=== PATIENT | male | born 1980 | race American Indian/Alaskan Native ===

== ENCOUNTER 2021-05-06 23:38 | Emergency (ER) | payer SELFPAY ==
[2021-05-06 23:46] VITALS: BP 161/101
--- NOTE | 2021-05-06 23:49 | Emergency Department Report ---
ED Upper Extremity Inj HPI - General Chief Complaint: Extremity Injury, Upper Stated Complaint: BROKEN ARM Time Seen by Provider: 05/06/21 23:47 Source: patient Mode of arrival: Ambulatory Limitations: No Limitations - History of Present Illness Initial Comments: Patient presents with right arm pain. He has a right hand dominant gentleman who slipped and fell on a wet floor last night. He states that his arm was underneath him and he tried to catch himself. He has been having pain in the right forearm. This radiates into the elbow. There is pain with any kind of motion of the right elbow. He states that his wrist and hand really do not hurt. His shoulder does not hurt. Again, he is right-hand dominant. Pain is a constant and aching pain. He has no other trauma. Is never injured his arm before. - Related Data Previous Rx's Medication Instructions Recorded Last Taken Type HYDROcodone/APAP 5-325 [[place] 1 each PO Q6HR PRN #15 tablet 05/07/21 Unknown Rx 5/325] Allergies Allergy/AdvReac Type Severity Reaction Status Date / Time No Known Allergies Allergy Unverified 05/06/21 23:45 ED Review of Systems ROS: Stated complaint: BROKEN ARM Other details as noted in HPI Comment: All other systems reviewed and negative Constitutional: denies: fever Eyes: denies: vision change ENT: denies: throat pain Respiratory: denies: cough Cardiovascular: denies: chest pain Endocrine: denies: unexplained weight loss Gastrointestinal: denies: abdominal pain Genitourinary: denies: hematuria Musculoskeletal: denies: back pain Skin: denies: rash Hematological/Lymphatic: denies: easy bruising ED Past Medical Hx - Past Medical History Previous Medical History?: No - Surgical History Past Surgical History?: No - Family History Family history: no significant - Medications Home Medications: Home Medications Medication Instructions Recorded Confirmed Last Taken Type HYDROcodone/APAP 5-325 [[place] 1 each PO Q6HR PRN #15 tablet 05/07/21 Unknown Rx 5/325] ED Physical Exam - General Limitations: No Limitations, Other (Pulse ox noted and normal) General appearance: alert, in no apparent distress - Head Head exam: Present: atraumatic, normocephalic, normal inspection - Eye Eye exam: Present: normal appearance, EOMI. Absent: scleral icterus - ENT ENT exam: Present: normal external ear exam - Neck Neck exam: Present: normal inspection. Absent: meningismus - Respiratory Respiratory exam: Absent: respiratory distress - Cardiovascular Cardiovascular Exam: Present: other (Normal pulses) - Extremities Exam Extremities exam: Present: normal capillary refill, other (There is tenderness with palpation over the right forearm and right elbow. There is limited range of motion with pronation and supination as well as flexion and extension at the elbow. Right wrist is nontender. There is no tenderness in the snuffbox. Distal sensation is intact.) - Back Exam Back exam: Absent: vertebral tenderness - Neurological Exam Neurological exam: Present: alert, oriented X3, CN II-XII intact, normal gait. Absent: motor sensory deficit - Psychiatric Psychiatric exam: Present: normal affect, normal mood - Skin Skin exam: Present: warm, dry ED Course Vital Signs 05/06/21 23:41 Temperature 99.1 F Pulse Rate 86 Respiratory 18 Rate Blood Pressure 161/101 [Left] O2 Sat by Pulse 96 Oximetry - Reevaluation(s) Reevaluation #1: 05/06/21 23:49 X-rays were ordered. Old records reviewed. Reevaluation #2: 05/07/21 03:39 X-rays were noted. Splint was ordered. Patient was discharged. - Orthopedic Splinting/Casting Injury #1 Side: right Upper Extremity Injury Location: elbow, forearm Upper Extremity Immobilizer: sling/shoulder immobilize, sugartong splint Additional Comments: Patient had no neurovascular compromise after splint application. This was done with my direct supervision. ED Medical Decision Making - Radiology Data Radiology results: report reviewed - Medical Decision Making Patient presents with right arm pain after fall. Pain was primarily in the proximal forearm. He does have evidence of a proximal radius fracture. He has been immobilized with a splint. He does not require surgical intervention for this. Patient can follow-up with orthopedic surgery in 5 to 7 days. Splint has been applied. He has good follow-up and analgesia provided. He was subsequently discharged. There was no other injury noted. He did not have evidence of dislocation. Radial pulses were equal and symmetric. Sensation was intact. There is no neurovascular deficit. Critical Care Time: No Critical care attestation.: If time is entered above; I have spent that time in minutes in the direct care of this critically ill patient, excluding procedure time. ED Disposition Clinical Impression: Fall Qualifiers: Encounter type: initial encounter Qualified Code(s): W19.XXXA - Unspecified fall, initial encounter Right radial fracture Qualifiers: Encounter type: initial encounter Radius location: neck Fracture type: closed Fracture alignment: nondisplaced Qualified Code(s): S52.134A - Nondisplaced fracture of neck of right radius, initial encounter for closed fracture Disposition: HOME / SELF CARE / HOMELESS Is pt being admited?: No Condition: Stable Instructions: Cast or Splint Care, Adult, [id number], Radial Head Fracture Additional Instructions: Ice and elevate. Wear the splint. Follow-up with orthopedic surgery in 7 days. Return for problems. Do not drive while taking pain medication. Drink plenty of fluids to prevent constipation. Prescriptions: HYDROcodone/APAP 5-325 [[place] 5/325] 1 each PO Q6HR PRN #15 tablet PRN Reason: Pain Referrals: PRIMARY [facility]EMD [Referring] - 3-5 Days JB MOYER MD [Staff Physician] - 3-5 Days FROY TINOCO MD [Staff Physician] - 3-5 Days
--- NOTE | 2021-05-07 01:01 | XRay Report ---
Right forearm, 3 views HISTORY: Pain COMPARISON: None FINDINGS: There is a nondisplaced fracture of the proximal radius at the radial neck. No discrete intra-articul ar involvement. No additional fracture. No joint malalignment. There is joint capsular distention of the elbow. IMPRESSION: Acute nondisplaced proximal radial fracture at the radial neck. Signer Name: Markie Serrano MD Signed: 05/07/2021 12:56 AM Workstation Name: [id number]
== END 2021-05-07 04:00 | disposition home or self-care (01) ==
LOC: ED 23:38
DX: S52.134A Nondisplaced fracture of neck of right radius, initial encounter for closed fracture (principal); W01.0XXA Fall on same level from slipping, tripping and stumbling without subsequent striking against object, initial encounter; Y93.89 Activity, other specified; Y92.89 Other specified places as the place of occurrence of the external cause; Y99.8 Other external cause status
CPT/HCPCS: 99283